=== PATIENT | male | born 1985 | race Two or more races ===

== ENCOUNTER 2024-01-07 20:48 | Emergency (ER) | payer MEDICAID, OTHER ==
[~2024-01-07] VITALS: Ht 170.2 cm; Wt 54.5 kg
[2024-01-07] MEDS ORDERED: PANTOPRAZOLE 40 MG/10 ML VIAL INJ IV ONE (21:15)
[2024-01-07] MEDS ORDERED: ONDANSETRON HCL 4 MG/2 ML VIAL IV ONE (21:15)
[2024-01-07 21:49] LABS: Basophils # (auto) 0.1 10 ^3/uL (0-0.2); Basophils % (auto) 1.1 % (0.0-2.0); Eosinophils # (auto) 0 10 ^3/uL (0-0.8); Eosinophils % (auto) 0.7 % (0.0-7.0); Hematocrit 42.8 % (41.0-53.0); Hemoglobin 14.5 g/dL (13.5-17.5); Lymphocytes # (auto) 1.4 10 ^3/uL (0.4-5.4); Lymphocytes % (auto) 28.9 % (10.0-50.0); Mean Corpuscular Hemoglobin 30.9 pg (28.0-32.0); Mean Corpuscular Hgb Conc. 33.9 g/dL (32.0-36.0); Mean Corpuscular Volume 91.1 fL (80.0-100.0); Monocytes # (auto) 0.3 10 ^3/uL (0-1.3); Monocytes % (auto) 6.6 % (0.0-12.0); Neutrophils % (auto) 62.7 % (37.0-80.0); Nucleated Red Blood Cells % 0.2 %; Red Cell Distribution Width 13.2 % (11.8-14.3); White Blood Cell 4.9 10^3/uL (4.4-10.8)
[2024-01-07 22:07] LABS: Alanine Aminotransferase 32 U/L (7-40); Albumin 4.9 g/dL (3.2-4.8); Alkaline Phosphatase 61 U/L (46-116); Anion Gap 4 (5-15); Aspartate Aminotransferase 21 U/L (13-40); Bilirubin, Total 0.7 mg/dL (0.2-1.0); Blood Urea Nitrogen 12 mg/dL (9-23); Carbon Dioxide 29 mmol/L (20-30); Chloride 106 mmol/L (98-107); Glucose 84 mg/dL (74-106); Potassium 3.8 mmol/L (3.5-5.1); Sodium 139 mmol/L (136-145); Total Protein 7.3 g/dL (5.7-8.2)
[2024-01-07 22:08] LABS: INR 1.06 (0.9-1.15); Partial Thromboplastin Time 27.7 SEC (24.5-34.5); Prothrombin Time 11.1 sec (9.3-11.8)
[2024-01-07 22:21] VITALS: PULSE 60; RESP 16; TEMP 97.5; O2SAT 100
[2024-01-07] MEDS ORDERED: PANTOPRAZOLE 40 MG TAB PO ONE (22:30)
[2024-01-07] MEDS ORDERED: ONDANSETRON ODT 4 MG TAB PO ONE (22:30)
[2024-01-07] MEDS: ONDANSETRON HCL 4 MG/2 ML VIAL IV ONE (22:35)
[2024-01-07] MEDS: PANTOPRAZOLE 40 MG/10 ML VIAL INJ IV ONE (22:35)
[2024-01-07] MEDS: SODIUM CHLORIDE 0.9% 1,000 ML IV ONE (22:35)
[2024-01-07 22:47] LABS: Urine WBC None Seen /hpf (0 - 3)
[2024-01-07] MEDS ORDERED: ZOFR4T PO (23:00)
[2024-01-07 23:05] LABS: Urine Bacteria NONE SEEN /hpf (None Seen); Urine Blood Negative /uL (Negative); Urine Clarity Clear (Clear); Urine Color Yellow (Yellow); Urine Protein, UAD TRACE (Negative); Urine Specific Gravity 1.021 (1.001-1.035); Urine Urobilinogen Normal (Negative); Urine pH 6.5 (5.0-8.0)
[2024-01-07 23:07] VITALS: BP 100/63
== END 2024-01-08 00:33 | disposition home or self-care (01) ==
LOC: ER 20:48
DX: R10.84 Generalized abdominal pain (principal); R11.2 Nausea with vomiting, unspecified
CPT/HCPCS: 36415; 71045; 74176; 80053; 81001; 84484; 85025; 85610; 85730; 86850; 86900; 86901; 96361; 96374; 96375; 99285; C9113; J2405; J7030

== ENCOUNTER 2025-06-12 21:08 | Emergency (ER) | payer MEDICAID ==
[~2025-06-12 21:08] MED LIST: ZOFR4T PO
--- NOTE | 2025-06-12 21:39 | ECG ---
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
--- NOTE | 2025-06-12 22:29 | DVH ---
CHEST RADIOGRAPH Indication: Left upper chest pain Technique: Single frontal view of the chest was obtained Comparison: XY CHEST PORTABLE on DOS: 01/07/24 FINDINGS: Lines and Tubes: None Lungs: No focal consolidation. Pleura: No effusion. No pneumothorax. Cardiomediastinal contours: Unremarkable Bones: No acute osseous abnormality. IMPRESSION: 1. No acute cardiopulmonary disease.
[2025-06-13 02:10] VITALS: BP 114/73; PULSE 72; RESP 20; TEMP 97.5; O2SAT 100
== END 2025-06-13 02:19 | disposition home or self-care (01) ==
LOC: ER 21:08
DX: R07.89 Other chest pain (principal)
CPT/HCPCS: 36415; 71045; 84484; 93005